=== PATIENT | male | born 2000 | race Two or more races ===

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

== ENCOUNTER 2022-03-19 11:32 | Emergency (ER) | payer MEDICAID, SELFPAY ==
--- NOTE | ~2022-03-19 | XR_ITS ---
EXAMINATION: XR CHEST CLINICAL INFORMATION: Palpitations COMPARISON: Chest radiographs 10/19/2019 TECHNIQUE: 2 views of the chest were obtained. FINDINGS: Lungs clear. Vascularity normal. No infiltrate or effusion. Heart size normal. No pneumothorax or pleural reaction. There is mild hyperinflation versus good inspiratory effort. The hilar and mediastinal contours and visualized bony structures are unremarkable. XR/XR chest 2V IMPRESSION: Unremarkable examination.
--- NOTE | 2022-03-19 11:34 | ECG_ITS ---
Test Reason : CHEST PAIN Blood Pressure : / mmHG Vent. Rate : 067 BPM Atrial Rate : 067 BPM P-R Int : 166 ms QRS Dur : 094 ms QT Int : 382 ms P-R-T Axes : 053 075 042 degrees QTc Int : 403 ms Normal sinus rhythm Normal ECG No previous ECGs available Referred By: Generic ED Physician Electronically Signed By:HUNG BOGGS
[2022-03-19 11:50] VITALS: BP 121/66; PULSE 62; RESP 16; TEMP 36.6; O2SAT 99; BMI 23.0
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
[2022-03-19 12:27] VITALS: BP 107/63; PULSE 65; RESP 15; TEMP 36.3; O2SAT 100
== END 2022-03-19 13:15 | disposition home or self-care (01) ==
PROVIDERS: Emergency Provider Student in an Organized Health Care Education/Training Program
DX: R07.89 Other chest pain (principal); R00.2 Palpitations; Z79.899 Other long term (current) drug therapy
CPT/HCPCS: 71046; 93005; 99283; 99284

== ENCOUNTER 2022-04-29 11:33 | Emergency (ER) | payer MEDICAID, SELFPAY ==
[2022-04-29 11:34] VITALS: BP 121/67; PULSE 66; RESP 18; TEMP 36.3; O2SAT 100; BMI 22.8
--- NOTE | 2022-04-29 11:43 | ED.GENADULT ---
HPI - General Adult General Chief complaint: Abdominal Pain Stated complaint: ?food poisoning Time Seen by Provider: 04/29/22 11:42 Source: patient Mode of arrival: ambulatory Limitations: no limitations History of Present Illness HPI narrative: Patient is a 22 year old assigned male at with no reported medical history presenting to the emergency department today with nausea and vomiting. Patient states that he had bad chicken from his school cafeteria and has been nauseous / throwing up ever since. Patient denies any dizziness, lightheadedness, abdominal pain, fever, chills, blurry vision, double vision, loss of vision, chest pain, difficulty breathing, shortness of breath, back pain, night sweats, pain with urination, increased urinary frequency, increased urinary urgency, blood in his urine or stool, syncope or a near syncopal episode, recent trauma or falls, bowel incontinence, bladder incontinence, bowel retention, bladder retention, or any other complaints at this time. Onset (ago): hour(s) Radiation: non-radiation Severity: mild Severity scale (1-10): 3 Relieving factors: none Exacerbating factors: none Associated symptoms: nausea/vomiting Treatments prior to arrival: none Related Data Previous Rx's Medication Instructions Recorded cephalexin 500 mg capsule 500 mg PO BID 10 days #20 caps 09/28/20 doxycycline monohydrate 100 mg 100 mg PO BID 10 days #20 caps 09/28/20 capsule erythromycin 5 mg/gram (0.5 %) eye 0.5 inch ophthalmic (eye) QID 09/28/20 ointment Bacterial conjunctivitis 7 days #3.5 grams ibuprofen 600 mg tablet 600 mg PO Q6H PRN pain #20 tabs 11/04/20 ondansetron 4 mg disintegrating 4 mg PO Q8H 3 days #9 tabs 04/29/22 tablet Allergies Allergy/AdvReac Type Severity Reaction Status Date / Time No Known Allergies Allergy Unverified 12/21/19 18:48 Review of Systems Constitutional: Constitutional: Reports no additional constitutional complaints, Denies chills, Denies fever(s) and Denies night sweats Eyes: Eyes: Reports no additional eye complaints, Denies blurry vision, Denies change in vision, Denies diplopia, Denies eye discharge, Denies loss of vision and Denies eye pain ENT: Denies dizziness Cardiovascular: Cardiovascular: Reports no additional cardiovascular complaints, Denies chest pain, Denies lightheadedness, Denies Loss of Consciousness and Denies dyspnea Respiratory: Respiratory: Reports no additional respiratory complaints and Denies dyspnea Gastrointestinal: Gastrointestinal: Reports no additional gastrointestinal complaints, Denies abdominal pain, Denies melena, Denies hematochezia, Denies change in bowel habits, Denies change in stool character, Reports nausea and Reports vomiting Genitourinary: Genitourinary: Reports no additional male genitourinary complaints, Denies hematuria, Denies oliguria, Denies difficulty urinating, Denies dysuria, Denies urinary frequency, Denies urinary hesitancy, Denies urinary incontinence and Denies urinary urgency Musculoskeletal: Musculoskeletal: Reports no additional musculoskeletal complaints, Denies numbness and Denies tingling Neurologic: Denies dizziness, Denies loss of vision, Denies numbness and Denies tingling Psychiatric: Psychiatric: Reports no additional psychiatric complaints Endocrine: Endocrine: Reports no additional endocrine complaints Hematologic/Lymphatic: Hematologic/Lymphatic: Reports no additional hematologic/lymphatic complaints Allergic/Immunologic: Allergic/Immunologic: Reports no additional allergic/immunologic complaints PMFSH Past Medical History Attestation statement: The following information was validated with the patient. Source: old records reviewed and nursing notes reviewed Medical History No active medical problems Social History Social History Advance Directives: No Physical Exam ED Vital Signs: Vital Signs - 24 hr 04/29/22 11:34 04/29/22 11:51 Temperature 97.3 F 97.8 F Pulse Rate 66 56 Respiratory Rate 18 20 Blood Pressure 121/67 125/84 Pulse Oximetry 100 100 Oxygen Delivery Method Room Air Room Air BMI result Body Mass Index 22.8 Const General: cooperative, no acute distress, alert and awake Nutritional Appearance: well nourished Orientation/consciousness: patient oriented x3 Limitations: no limitations HENMT Head: Yes normal to inspection and Yes atraumatic Ears: hearing grossly normal bilaterally and external ears normal General nose exam: Normal external nose present, no nasal discharge noted and no epistaxis Face and sinus: Yes normal facial exam, No abrasion and No laceration Mouth: Normal oral and palatal mucosa present, no drooling and no muffled voice Eyes General: appearance normal, both eyes and all related structures Periorbital: periorbital findings normal Eyelids: Yes eyelids normal Conjunctivae: conjunctivae normal Pupils: Equal, round and reactive pupils present EOM: EOMs intact bilaterally Neck Neck: Yes normal visual inspection, Yes full ROM and Yes no lymphadenopathy Chest Chest palpation & inspection: normal inspection of the chest Resp Effort & Inspection: normal respiratory effort and able to speak in complete sentences Auscultation: clear to auscultation bilaterally Cardio Rate: regular rate Rhythm: regular rhythm GI Inspection: Yes normal to inspection Palpation (GI): Soft to palpation, not firm, nontender, no guarding and not rigid Neuro General: patient oriented x3 and moves all extremities Cranial nerves: Yes Equal, round and reactive pupils present Cognition (Neuro): normal cognition Motor exam (neuro): 5/5 motor strength present throughout Sensory Exam: Normal double simultaneous stimulation for sensation Coordination: erdauz-ew-[id number] test normal Extrem General: Yes normal to inspection, Yes full ROM and Yes capillary refill normal Psych Appearance: grossly normal Mental Status: mental status grossly normal Affect: normal affect Attitude: cooperative Thought process: Normal thought process present Thought content: Normal thought content present Insight: Good insight present (Psych) Medications Administered Discontinued Medications Generic Name Dose Route Start Last Admin Trade Name Freq PRN Reason Stop Dose Admin Sodium Chloride 1,000 mls @ 999 mls/hr 04/29/22 11:45 04/29/22 12:08 Ns IV 04/29/22 12:45 999 mls/hr .Q1H1M KASHIF Administration Ondansetron HCl 4 mg 04/29/22 11:44 04/29/22 12:10 Ondansetron Hcl 4 Mg/2 Ml Vial IVPUSH 04/29/22 11:45 4 mg ONCE ONE Administration Medical Decision Making Medical Decision Making [facility] Narrative: Patient is a 22 year old assigned male at with no reported medical history presenting to the emergency department today with nausea and vomiting. Patient's physical exam was unremarkable. Patient's blood work was unremarkable. I explained my physical exam findings as well as all test results to the patient. I answered all questions asked by the patient. Patient received IV fluids and Zofran which he stated helped his symptoms significantly. I stressed the importance of the patient taking his medication as prescribed. I stressed the importance of the patient following up with his primary care provider. I stressed the importance of the patient returning to the emergency department immediately if his symptoms were to worsen or if he were to develop any dizziness, shortness of breath, difficulty breathing, chest pain, blurry vision, loss of vision, nausea, vomiting, abdominal pain, fever, chills, back pain, or any other complaints. Patient verbalized agreement and understanding with this treatment plan and discharge. Differential Diagnosis Differential Diagnoses: The differential diagnosis associated with the presentation includes nausea, vomiting Lab Data MDM Lab Attestation statement: I reviewed the patient's lab results. 04/29/22 12:05 04/29/22 12:05 Labs: Lab Results 04/29/22 04/29/22 04/29/22 Range/Units 12:04 12:04 12:05 WBC 10.2 (4.8-10.8) X10*3/uL RBC 5.26 (4.60-5.80) X10*6/uL Hgb 15.8 (14.0-18.0) g/dl Hct 46.4 (42.0-52.0) % MCV 88.2 (80.0-98.0) fL MCH 30.0 (27.0-33.0) pg MCHC 34.1 (31.0-36.0) g/dl RDW 13.0 (11.0-16.0) % Plt Count 210 (160-400) X10*3/uL MPV 9.9 (9.4-12.4) fL Immature Gran % (Auto) 0.3 (0.0-0.4) % Neut % (Auto) 76.9 H (45-73) % Lymph % (Auto) 15.1 L (20-40) % Toombs % (Auto) 5.5 (2-11) % Eos % (Auto) 1.9 (0-4) % Baso % (Auto) 0.3 (0-2) % Lymph # (Auto) 1.5 (1.2-4.9) X10*3/uL Toombs # (Auto) 0.6 (0.1-1.2) X10*3/uL Eos # (Auto) 0.2 (0.0-0.4) X10*3/uL Baso # (Auto) 0.0 (0.0-0.2) X10*3/uL Abs Immat Gran (auto) 0.03 (0.00-0.03) X10*3/uL Absolute Neuts (auto) 7.8 (2.0-8.3) x10*3/uL Absolute Nucleated RBC 0.000 (0.0-0.012) X10*3/uL Nucleated RBC % (auto) 0.0 (0.0-0.2) /100WBC Sodium (135-145) mmol/L Potassium (3.3-5.1) mmol/L Chloride (96-108) mmol/L Carbon Dioxide (22-29) mmol/L Anion Gap (12-20) BUN (9-16) mg/dL Creatinine (0.5-1.4) mg/dL Estim Creat Clear Calc Estimated GFR Random Glucose (60-115) mg/dL Calcium (8.4-10.2) mg/dL Magnesium (1.6-2.6) mg/dL Total Bilirubin (0.0-1.0) mg/dL AST (5-37) U/L ALT (0-40) U/L Alkaline Phosphatase (39-117) U/L Total Protein (6.5-8.0) g/dL Albumin (3.5-5.0) g/dL COVID-19 ([facility]) Negative (Negative) COVID-19 Clin Com See Note Influenza Type A ([facility]) Negative (Negative) Influenza Type B ([facility]) Negative (Negative) Influenza A & B Note See Note 04/29/22 Range/Units 12:05 WBC (4.8-10.8) X10*3/uL RBC (4.60-5.80) X10*6/uL Hgb (14.0-18.0) g/dl Hct (42.0-52.0) % MCV (80.0-98.0) fL MCH (27.0-33.0) pg MCHC (31.0-36.0) g/dl RDW (11.0-16.0) % Plt Count (160-400) X10*3/uL MPV (9.4-12.4) fL Immature Gran % (Auto) (0.0-0.4) % Neut % (Auto) (45-73) % Lymph % (Auto) (20-40) % Toombs % (Auto) (2-11) % Eos % (Auto) (0-4) % Baso % (Auto) (0-2) % Lymph # (Auto) (1.2-4.9) X10*3/uL Toombs # (Auto) (0.1-1.2) X10*3/uL Eos # (Auto) (0.0-0.4) X10*3/uL Baso # (Auto) (0.0-0.2) X10*3/uL Abs Immat Gran (auto) (0.00-0.03) X10*3/uL Absolute Neuts (auto) (2.0-8.3) x10*3/uL Absolute Nucleated RBC (0.0-0.012) X10*3/uL Nucleated RBC % (auto) (0.0-0.2) /100WBC Sodium 140 (135-145) mmol/L Potassium 4.2 (3.3-5.1) mmol/L Chloride 103 (96-108) mmol/L Carbon Dioxide 27 (22-29) mmol/L Anion Gap 14 (12-20) BUN 10 (9-16) mg/dL Creatinine 1.03 (0.5-1.4) mg/dL Estim Creat Clear Calc 106.9 Estimated GFR > 60 Random Glucose 87 (60-115) mg/dL Calcium 9.9 (8.4-10.2) mg/dL Magnesium 2.1 (1.6-2.6) mg/dL Total Bilirubin 1.5 H (0.0-1.0) mg/dL AST 18 (5-37) U/L ALT 12 (0-40) U/L Alkaline Phosphatase 97 (39-117) U/L Total Protein 6.8 (6.5-8.0) g/dL Albumin 4.3 (3.5-5.0) g/dL COVID-19 ([facility]) (Negative) COVID-19 Clin Com Influenza Type A ([facility]) (Negative) Influenza Type B ([facility]ITT) (Negative) Influenza A & B Note Discharge Plan Discharge Clinical Impression: Nausea & vomiting Patient Disposition: Home, Self-Care Instructions: Acute Nausea and Vomiting (ED) Additional Instructions: Follow up with your primary care provider. Return to the emergency department immediately if your symptoms worsen or if you develop any dizziness, shortness of breath, difficulty breathing, chest pain, blurry vision, loss of vision, nausea, vomiting, abdominal pain, fever, chills, back pain, or any other complaints. Prescriptions: New ondansetron 4 mg tablet,disintegrating 4 mg PO Q8H 3 Days Qty: 9 0RF No Action ibuprofen 600 mg tablet 600 mg PO Q6H PRN (Reason: pain) Qty: 20 0RF doxycycline monohydrate 100 mg capsule 100 mg PO BID 10 Days Qty: 20 0RF cephalexin 500 mg capsule 500 mg PO BID 10 Days Qty: 20 0RF erythromycin 5 mg/gram (0.5 %) ointment 0.5 inch ophthalmic (eye) QID 7 Days Qty: 3.5 0RF Referrals: [facility] [place] Family Medicine [Provider Group] (Call to establish and follow up with a primary care provider. If you already have a primary care provider, please follow up with them. ) [facility] [place] Primary CareLeonila [Provider Group] (Call to establish and follow up with a primary care provider. If you already have a primary care provider, please follow up with them. ) [facility] [place] Primary Care,Reji [Provider Group] (Call to establish and follow up with a primary care provider. If you already have a primary care provider, please follow up with them. ) Stand Alone Forms: Work/School Release Interventions: ED Discharge Assessment Last Done: 04/29/22 12:51 Print Language: Mauritian
[2022-04-29 11:51] VITALS: BP 125/84; PULSE 56; RESP 20; TEMP 36.6; O2SAT 100
[2022-04-29] MEDS: 0.9 % Sodium Chloride 1,000 ML 999 ML IV (12:08)
[2022-04-29 12:09] LABS: MANUAL DIFF FLAG NO
[2022-04-29] MEDS: ondansetron HCL 4 MG/2 ML VIAL IVPUSH (12:10)
[2022-04-29 12:13] LABS: Basophils Percent Auto 0.3 % (0-2); Eosinophils Absolute Auto 0.2 X10*3/uL (0.0-0.4); Eosinophils Percent Auto 1.9 % (0-4); Hematocrit 46.4 % (42.0-52.0); Hemoglobin 15.8 g/dl (14.0-18.0); Imm Gran Abs Auto 0.03 X10*3/uL (0.00-0.03); Imm Gran Pct Auto 0.3 % (0.0-0.4); Lymphocytes Absolute Auto 1.5 X10*3/uL (1.2-4.9); Lymphocytes Percent Auto 15.1 % (20-40); Mean Corpuscular HGB Conc 34.1 g/dl (31.0-36.0); Mean Corpuscular Volume 88.2 fL (80.0-98.0); Mean Platelet Volume 9.9 fL (9.4-12.4); Monocytes Absolute Auto 0.6 X10*3/uL (0.1-1.2); Monocytes Percent Auto 5.5 % (2-11); Neutrophils Absolute Auto 7.8 x10*3/uL (2.0-8.3); Neutrophils Percent Auto 76.9 % (45-73); Platelet Count 210 X10*3/uL (160-400); Red Blood Count 5.26 X10*6/uL (4.60-5.80); White Blood Count 10.2 X10*3/uL (4.8-10.8)
[2022-04-29 12:24] LABS: COVID-19 Test Negative (Negative); IDNOW Serial# BCCEAD1C
[2022-04-29 12:30] LABS: IDNOW Serial# 9DB6401D; Influenza A Negative (Negative); Influenza B2 Negative (Negative)
[2022-04-29 12:31] LABS: Alanine Aminotransferase 12 U/L (0-40); Albumin Level 4.3 g/dL (3.5-5.0); Alkaline Phosphatase 97 U/L (39-117); Anion Gap 14 (12-20); Aspartate Amino Transferase 18 U/L (5-37); Bilirubin Total 1.5 mg/dL (0.0-1.0); Blood Urea Nitrogen 10 mg/dL (9-16); Calcium 9.9 mg/dL (8.4-10.2); Carbon Dioxide 27 mmol/L (22-29); Chloride 103 mmol/L (96-108); Creatinine Clr Calc Pharmacy 106.9; Estimated Glomerular Filt Rate > 60; Glucose Random 87 mg/dL (60-115); Magnesium 2.1 mg/dL (1.6-2.6); Potassium 4.2 mmol/L (3.3-5.1); Sodium 140 mmol/L (135-145); Total Protein 6.8 g/dL (6.5-8.0)
== END 2022-04-29 12:52 | disposition home or self-care (01) ==
PROVIDERS: Physician Assistant Medical; Emergency Provider Emergency Medicine
DX: R11.2 Nausea with vomiting, unspecified (principal); Z20.822 Contact with and (suspected) exposure to COVID-19
CPT/HCPCS: 36415; 80053; 83735; 85025; 87502; 87635; 96374; 99283; 99284; J2405

== ENCOUNTER 2022-07-16 11:05 | Emergency (ER) | payer MEDICAID, SELFPAY ==
--- NOTE | 2022-07-16 11:17 | ED.GENADULT ---
HPI - General Adult General Chief complaint: General Medical <Leslie Lovell NP - Last Filed: 07/16/22 11:19> Stated complaint: medical clearance <Leslie Lovell NP - Last Filed: 07/16/22 11:19> Time Seen by Provider: 07/16/22 11:31 <Leslie Lovell NP - Last Filed: 07/16/22 11:19> Source: patient <GLYNN Mcgarry - Last Filed: 07/16/22 13:11> Mode of arrival: ambulatory <GLYNN Mcgarry - Last Filed: 07/16/22 13:11> Limitations: no limitations <GLYNN Mcgarry Last Filed: 07/16/22 13:11> History of Present Illness HPI narrative: 22 yo male presents to the ER for evaluation of colf/flu symptoms for the last 3 days. He presents with his girlfriend who has had similar symptoms for the last 5 days and is now feeling better. Patient reports cough, nasal congestion, diarrhea and low back pains. He also has a mild sore throat yesterday but not today. He denies any fever or chills. He is eating and drinking normally. No abdominal pains. No difficulty breathing or shortness of breath. <GLYNN Mcgarry - Last Filed: 07/16/22 13:11> MD complaint: cough, congestion, myalgias <GLYNN Mcgarry - Last Filed: 07/16/22 13:11> Onset (ago): day(s) (3) <GLYNN Mcgarry - Last Filed: 07/16/22 13:11> Location: mouth, neck and back <GLYNN Mcgarry Last Filed: 07/16/22 13:11> Radiation: non-radiation <GLYNN Mcgarry Last Filed: 07/16/22 13:11> Severity: mild <GLYNN Mcgarry Last Filed: 07/16/22 13:11> Quality: aching <GLYNN Mcgarry Last Filed: 07/16/22 13:11> Pain Consistency: constant <GLYNN Mcgarry Last Filed: 07/16/22 13:11> Relieving factors: none <GLYNN Mcgarry - Last Filed: 07/16/22 13:11> Exacerbating factors: none <GLYNN Mcgarry - Last Filed: 07/16/22 13:11> Associated symptoms: cough <GLYNN Mcgarry - Last Filed: 07/16/22 13:11> Treatments prior to arrival: none <GLYNN Mcgarry - Last Filed: 07/16/22 13:11> Related Data Home medications: Previous Rx's Medication Instructions Recorded cephalexin 500 mg capsule 500 mg PO BID 10 days #20 caps 09/28/20 doxycycline monohydrate 100 mg 100 mg PO BID 10 days #20 caps 09/28/20 capsule erythromycin 5 mg/gram (0.5 %) eye 0.5 inch ophthalmic (eye) QID 09/28/20 ointment Bacterial conjunctivitis 7 days #3.5 grams ibuprofen 600 mg tablet 600 mg PO Q6H PRN pain #20 tabs 11/04/20 ondansetron 4 mg disintegrating 4 mg PO Q8H 3 days #9 tabs 04/29/22 tablet <Leslie Lovell NP - Last Filed: 07/16/22 11:19> Allergies/adverse reactions: Allergies Allergy/AdvReac Type Severity Reaction Status Date / Time No Known Allergies Allergy Unverified 12/21/19 18:48 <Leslie Lovell NP - Last Filed: 07/16/22 11:19> Review of Systems Review of Systems: Yes all other systems are reviewed and are negative <GLYNN Mcgarry - Last Filed: 07/16/22 13:11> [facility] Past Medical History Medical History: Medical History No active medical problems <Leslie Lovell NP - Last Filed: 07/16/22 11:19> Social History Social History: Social History Advance Directives: No Advance Directives Information Provided: No <Leslie Lovell NP - Last Filed: 07/16/22 11:19> Physical Exam ED Vital Signs: Vital Signs - 24 hr 07/16/22 11:18 Temperature 98 F Pulse Rate 82 Respiratory Rate 19 Blood Pressure 115/72 Pulse Oximetry 98 Oxygen Delivery Method Room Air BMI result Body Mass Index 22.6 <Lesile Lovell NP - Last Filed: 07/16/22 11:19> Vital Signs - 24 hr 07/16/22 11:18 Temperature 98 F Pulse Rate 82 Respiratory Rate 19 Blood Pressure 115/72 Pulse Oximetry 98 Oxygen Delivery Method Room Air BMI result Body Mass Index 22.6 <GLYNN Mcgarry - Last Filed: 07/16/22 13:11> Appearance: Alert. Oriented X3. No acute distress. Head: normocephalic, atraumatic. Eyes: Pupils equal, round and reactive to light. ENT: Pharynx normal. No tonsillar swelling or exudate. Neck: Normal inspection. Neck supple. CVS: Normal heart rate and rhythm. Pulses normal. Respiratory: No respiratory distress. Breath sounds normal. Abdomen: Soft and nontender. +BS x4 Skin: Skin warm and dry. Normal skin color. Normal skin turgor. No rashes. Extremities: No lower extremity edema. No joint swelling. Neuro/psych: Oriented X 3. No motor deficit. No sensory deficit. CN II-XII intact. Normal speech and cognition. <GLYNN Mcgarry - Last Filed: 07/16/22 13:11> Course Course Course Narrative: This is rapid medical exam. Deferred additional HPI, ROS, PE to primary provider. 22 yo male with no known medical problems here with complaints cough, nasal congestion, headache, back pain, fever, diarrhea since Wednesday. Girlfriend here sick with similar symptoms. Will send covid screen. VSS. <Leslie Lovell NP - Last Filed: 07/16/22 11:19> Medical Decision Making Medical Decision Making MDM Narrative: 22 yo male presenting with URI symptoms w/ cough <GLYNN Mcgarry - Last Filed: 07/16/22 13:11> Differential Diagnosis Differential Diagnoses: The differential diagnosis associated with the presentation includes <GLYNN Mcgarry Last Filed: 07/16/22 13:11> strep, covid, flu, rsv, other viral syndrome, bronchitis, pneumonia, no evidence of peritonsillar abcsess or retropharyngeal abscess <GLYNN Mcgarry - Last Filed: 07/16/22 13:11> Lab Data MDM Lab Attestation statement: I reviewed the patient's lab results. <GLYNN Mcgarry - Last Filed: 07/16/22 13:11> Labs: Lab Results 07/16/22 07/16/22 Range/Units 11:21 11:45 COVID-19 ([facility]) Negative (Negative) COVID-19 Clin Com See Note S. pyogenes GrpA [facility]ITT Negative (Negative) <Leslie Lovell NP - Last Filed: 07/16/22 11:19> Lab Results 07/16/22 07/16/22 Range/Units 11:21 11:45 COVID-19 ([facility]) Negative (Negative) COVID-19 Clin Com See Note S. pyogenes GrpA BRITT Negative (Negative) <GLYNN Mcgarry - Last Filed: 07/16/22 13:11> Discharge Plan Discharge Clinical Impression: Viral URI with cough <Leslie Lovell NP - Last Filed: 07/16/22 11:19> Patient Disposition: Home, Self-Care <Leslie Lovell NP - Last Filed: 07/16/22 11:19> Instructions: Viral Syndrome (ED) <Leslie Lovell NP - Last Filed: 07/16/22 11:19> Additional Instructions: You tested negative for COVID-19 and strep throat today. Your symptoms are most likely due to another viral illness. Treatment is rest and supportive care. Take [id number] cold and flu medications as needed for your symptoms. Rest and drink plenty of fluids. You should be okay to go back to work this weekend. Take Motrin and Tylenol as needed for back pain. Follow-up with your doctor as needed. If you develop new or worsening symptoms call 911 or come back to the ER for further evaluation. <Leslie Lovell NP - Last Filed: 07/16/22 11:19> Prescriptions: No Action ibuprofen 600 mg tablet 600 mg PO Q6H PRN (Reason: pain) Qty: 20 0RF doxycycline monohydrate 100 mg capsule 100 mg PO BID 10 Days Qty: 20 0RF cephalexin 500 mg capsule 500 mg PO BID 10 Days Qty: 20 0RF erythromycin 5 mg/gram (0.5 %) ointment 0.5 inch ophthalmic (eye) QID 7 Days Qty: 3.5 0RF ondansetron 4 mg tablet,disintegrating 4 mg PO Q8H 3 Days Qty: 9 0RF <Leslie Lovell NP - Last Filed: 07/16/22 11:19> Stand Alone Forms: Work/School Release <Leslie Lovell NP - Last Filed: 07/16/22 11:19> Interventions: ED Discharge Assessment Last Done: 07/16/22 12:48 <Leslie Lovell NP - Last Filed: 07/16/22 11:19> Discharge Date/Time: 07/16/22 12:48 <Leslie Lovell NP - Last Filed: 07/16/22 11:19>
[2022-07-16 11:18] VITALS: BP 115/72; PULSE 82; RESP 19; TEMP 36.6; O2SAT 98; BMI 22.6
--- NOTE | 2022-07-16 11:49 | PC.NURSE ---
strep swab obtained pending results
[2022-07-16 11:52] LABS: COVID-19 Test Negative (Negative); IDNOW Serial# 08D9AD1C
[2022-07-16 12:26] LABS: IDNOW Serial# 08D9AD1C; Strep A Nucleic Acid Negative (Negative)
== END 2022-07-16 12:48 | disposition home or self-care (01) ==
PROVIDERS: Nurse Practitioner Family; Physician Assistant; Emergency Provider Emergency Medicine
DX: J06.9 Acute upper respiratory infection, unspecified (principal); R05.9 Cough, unspecified; Z20.822 Contact with and (suspected) exposure to COVID-19; Z20.828 Contact with and (suspected) exposure to other viral communicable diseases; Z79.899 Other long term (current) drug therapy
CPT/HCPCS: 87635; 87651; 99282; 99283

== ENCOUNTER 2022-09-09 06:34 | Emergency (ER) | payer MEDICAID, SELFPAY ==
--- NOTE | 2022-09-09 | ECG_ITS ---
Test Reason : CHEST PAIN Blood Pressure : / mmHG Vent. Rate : 077 BPM Atrial Rate : 077 BPM P-R Int : 164 ms QRS Dur : 096 ms QT Int : 376 ms P-R-T Axes : 050 062 021 degrees QTc Int : 425 ms Normal sinus rhythm with sinus arrhythmia Normal ECG When compared with ECG of 19-MAR-2022 11:44, No significant change was found Referred By: Generic ED Physician Electronically Signed By:Marc Low
--- NOTE | ~2022-09-09 | XR_ITS ---
EXAMINATION: XR CHEST CLINICAL INFORMATION: Chest pain COMPARISON: 03/19/2022 TECHNIQUE: 2 views of the chest were obtained. FINDINGS: No significant abnormality is noted involving the heart, lungs, mediastinum, bony thorax or soft tissues. XR/XR chest 2V IMPRESSION: Unremarkable examination.
[2022-09-09 06:35] VITALS: BP 138/82; PULSE 84; RESP 18; TEMP 36.8; O2SAT 100; BMI 23.2
[2022-09-09 06:55] LABS: Hematocrit 44.2 % (42.0-52.0); Hemoglobin 15.3 g/dl (14.0-18.0); Mean Corpuscular HGB Conc 34.6 g/dl (31.0-36.0); Mean Corpuscular Hemoglobin 30.1 pg (27.0-33.0); Mean Corpuscular Volume 86.8 fL (80.0-98.0); Mean Platelet Volume 9.8 fL (9.4-12.4); Platelet Count 236 X10*3/uL (160-400); Red Blood Count 5.09 X10*6/uL (4.60-5.80); Red Cell Distribution Width 12.4 % (11.0-16.0); White Blood Count 7.9 X10*3/uL (4.8-10.8)
[2022-09-09 07:12] LABS: Alanine Aminotransferase 16 U/L (0-40); Albumin Level 4.7 g/dL (3.5-5.0); Alkaline Phosphatase 107 U/L (39-117); Anion Gap 14 (12-20); Aspartate Amino Transferase 26 U/L (5-37); Bilirubin Total 1.4 mg/dL (0.0-1.0); Blood Urea Nitrogen 11 mg/dL (9-16); Carbon Dioxide 25 mmol/L (22-29); Chloride 105 mmol/L (96-108); Creatinine Clr Calc Pharmacy 122.4; Estimated Glomerular Filt Rate > 60; Glucose Random 91 mg/dL (60-115); Lipase 12 U/L (8-78); Potassium 3.7 mmol/L (3.3-5.1); Sodium 140 mmol/L (135-145); Total Protein 7.4 g/dL (6.5-8.0)
[2022-09-09 07:21] LABS: Troponin-I High Sensitivity 12.7 ng/L (<3.5-35.0)
[2022-09-09 09:06] LABS: Color Urine Yellow; Glucose Urine UA Negative (Negative); Leukocyte Esterase Urine Negative (Negative); Nitrite Urine Negative (Negative); Urine Blood Negative (Negative); Urine Ketones Trace mg/dL (Negative); Urine Protein Negative (Neg-Trace)
--- NOTE | 2022-09-09 09:07 | ED_ITS ---
HPI - General Adult General Chief complaint: General Medical Stated complaint: Abdominal Pain/ Chest pain Time Seen by Provider: 09/09/22 09:06 Source: patient Mode of arrival: ambulatory Limitations: no limitations History of Present Illness HPI narrative: Patient is a 22 year old assigned male at with no reported medical history presenting to the emergency department today with epigastric pain. Patient stat es that after hitting his tobacco vape, he had an episode of abdominal pain that radiated into his chest and has now resolved. Patient denies any dizziness, lightheadedness, nausea, vomiting, fever, chills, blurry vision, double vision, loss of vision, chest pain, difficulty breathing, shortness of breath, back pain, night sweats, pain with urination, increased urinary frequency, increased urinary urgency, blood in his urine or stool, syncope or a near syncopal episode, recent trauma or falls, bowel incontinence, bladder incontinence, bowel retention, bladder retention, or any other complaints at this time. Onset (ago): hour(s) Location: chest and abdomen Severity: mild Severity scale (1-10): 3 Pain Consistency: now resolved Relieving factors: none Exacerbating factors: none Associated symptoms: denies other symptoms Treatments prior to arrival: none Related Data Previous Rx's Medication Instructions Recorded cephalexin 500 mg capsule 500 mg PO BID 10 days #20 caps 09/28/20 doxycycline monohydrate 100 mg 100 mg PO BID 10 days #20 caps 09/28/20 capsule erythromycin 5 mg/gram (0.5 %) eye 0.5 inch ophthalmic (eye) QID 09/28/20 ointment Bacterial conjunctivitis 7 days #3.5 grams ibuprofen 600 mg tablet 600 mg PO Q6H PRN pain #20 tabs 11/04/20 ondansetron 4 mg disintegrating 4 mg PO Q8H 3 days #9 tabs 04/29/22 tablet Allergies Allergy/AdvReac Type Severity Reaction Status Date / Time No Known Allergies Allergy Verified 09/09/22 06:40 Review of Systems Constitutional: Constitutional: Reports no additional constitutional complaints, Denies chills, Denies fever(s) and Denies night sweats Eyes: Eyes: Reports no additional eye complaints, Denies blurry vision, Denies change in vision, Denies diplopia, Denies eye discharge, Denies loss of vision and Denies eye pain ENT: Denies dizziness Cardiovascular: Cardiovascular: Reports no additional cardiovascular complaints, Reports chest pain (now resolved), Denies lightheadedness, Denies Loss of Consciousness and Denies dyspnea Respiratory: Respiratory: Reports no additional respiratory complaints and D enies dyspnea Gastrointestinal: Gastrointestinal: Reports no additional gastrointestinal complaints, Reports abdominal pain (epigastric - now resolved), Denies melena, Denies hematochezia, Denies change in bowel habits and Denies change in stool character Genitourinary: Genitourinary: Reports no additional male genitourinary complaints, Denies hematuria, Denies oliguria, Denies difficulty urinating, Denies dysuria, Denies urinary frequency, Denies urinary hesitancy, Denies urinary incontinence and Denies urinary urgency Musculoskeletal: Musculoskeletal: Reports no additional musculoskeletal complaints, Denies numbness and Denies tingling Neurologic: Denies dizziness, Denies loss of vision, Denies numbness and Denies tingling Psychiatric: Psychiatric: Reports no additional psychiatric complaints Endocrine: Endocrine: Reports no additional endocrine complaints Hematologic/Lymphatic: Hematologic/Lymphatic: Reports no additional hematol ogic/lymphatic complaints Allergic/Immunologic: Allergic/Immunologic: Reports no additional allergic/immunologic complaints PMFSH Past Medical History Attestation statement: The following information was validated with the patient. Source: old records reviewed and nursing notes reviewed Medical History No active medical problems Social History Social History Advance Directives: No Physical Exam ED Vital Signs: Vital Signs - 24 hr 09/09/22 06:35 Temperature 98.3 F Pulse Rate 84 Respiratory Rate 18 Blood Pressure 138/82 Pulse Oximetry 100 Oxygen Delivery Method Room Air BMI result Body Mass Index 23.2 Const General: cooperative, no acute distress, alert and awake Nutritional Appearance: well nourished Orientation/consciousness: patient oriented x3 Limitations: no limitations HENMT Head: Yes normal to inspection and Yes atraumatic Ears: hearing grossly normal bilaterally and external ears normal General nose exam: Normal external nose present, no nasal discharge noted and no epistaxis Face and sinus: Yes normal facial exam, No abrasion and No laceration Mouth: Normal oral and palatal mucosa present, no drooling and no muffled voice Eyes General: appearance normal, both eyes and all related structures Periorbital: periorbital findings normal Eyelids: Yes eyelids normal Conjunctivae: conjunctivae normal Pupils: Equal, round and reactive pupils present EOM: EOMs intact bilaterally Neck Neck: Yes normal visual inspection, Yes full ROM and Yes no lymphadenopathy Chest Chest palpation & inspection: normal inspection of the chest Resp Effort & Inspection: normal respiratory effort and able to speak in complete sentences Auscultation: clear to auscultation bilaterally Cardio Rate: regular rate Rhythm: regular rhythm GI Inspection: Yes normal to inspection Palpation (GI): Soft to palpation, not firm, nontender, no guarding and not rigid Neuro General: patient oriented x3 and moves all extremities Cranial nerves: Yes Equal, round and reactive pupils present Cognition (Neuro): normal cognition Motor exam (neuro): 5/5 motor strength present throughout Sensory Exam: Normal double simultaneous stimulation for sensation Coordination: [id number] test normal Extrem General: Yes normal to inspection, Yes full ROM and Yes capillary refill normal Psych Appearance: grossly normal Mental Status: mental status grossly normal Affect: normal affect Attitude: cooperative Thought process: Normal thought process present Thought content: Normal thought content present Insight: Good insight present (Psych) Medical Decision Making Medical Decision Making MDM Narrative: Patient is a 22 year old assigned male at with no reported medical history presenting to the emergency department today with epigastric and chest pain that has resolved. Patient's physical exam was unremarkable. Patient's blood work was unremarkable. Patient's initial and repeat EKGs were unremarkable. Patient's chest x-ray showed no acute process. I explained my physical exam findings as well as all test results to the patient. I answered all questions asked by the patient. I stressed the importance of the patient taking his medication as prescribed. I stressed the importance of the patient following up with his primary care provider. I stressed the importance of the patient returning to the emergency department immediately if his symptoms were to worsen or if he were to develop any dizziness, shortness of breath, difficulty breathing, chest pain, blurry vision, loss of vision, nausea, vomiting, abdominal pain, fever, chills, back pain, or any other complaints. Patient verbalized agreement and understanding with this treatment plan and discharge. Differential Diagnosis Differential Diagnoses: The differential diagnosis associated with the presentation includes chest wall pain, epigastric pain, anxiety Admission/Observation Consideration of admission/observation: Escalation of care including admission/observation considered Patient would have been admitted to the hospital had his work up had any findings where hospital admission was appropriate. Lab Data MDM Lab Attestation statement: I reviewed the patient's lab results. My interpretation of these studies and their corresponding values is that they are grossly normal. 09/09/22 06:48 09/09/22 06:48 Labs: Lab Results 09/09/22 09/09/22 09/09/22 Range/Units 06:48 06:48 06:48 WBC 7.9 (4.8-10.8) X10*3/uL RBC 5.09 (4.60-5.80) X10*6/uL Hgb 15.3 (14.0-18.0) g/dl Hct 44.2 (42.0-52.0) % MCV 86.8 (80.0-98.0) fL MCH 30.1 (27.0-33.0) pg MCHC 34.6 (31.0-36.0) g/dl RDW 12.4 (11.0-16.0) % Plt Count 236 (160-400) X10*3/uL MPV 9.8 (9.4-12.4) fL Absolute Nucleated RBC 0.000 (0.0-0.012) X10*3/uL Nucleated RBC % (auto) 0.0 (0.0-0.2) /100WBC Sodium 140 (135-145) mmol/L Potassium 3.7 (3.3-5.1) mmol/L Chloride 105 (96-108) mmol/L Carbon Dioxide 25 (22-29) mmol/L Anion Gap 14 (12-20) BUN 11 (9-16) mg/dL Creatinine 0.90 (0.5-1.4) mg/dL Estim Creat Clear Calc 122.4 Estimated GFR > 60 Random Glucose 91 (60-115) mg/dL Calcium 10.0 (8.4-10.2) mg/dL Total Bilirubin 1.4 H (0.0-1.0) mg/dL AST 26 (5-37) U/L ALT 16 (0-40) U/L Alkaline Phosphatase 107 (39-117) U/L Troponin I High Sens 12.7 (<3.5-35.0) ng/L Total Protein 7.4 (6.5-8.0) g/dL Albumin 4.7 (3.5-5.0) g/dL Lipase 12 (8-78) U/L Urine Color Urine Appearance Urine pH (5.0-9.0) Ur Specific [place] (1.005-1.025) Urine Protein (Neg-Trace) mg/dL Urine Glucose (UA) (Negative) mg/dL Urine Ketones (Negative) mg/dL Urine Blood (Negative) Urine Nitrite (Negative) Ur Leukocyte Esterase (Negative) 09/09/22 09/09/22 Range/Units 08:52 09:18 WBC (4.8-10.8) X10*3/uL RBC (4.60-5.80) X10*6/uL Hgb (14.0-18.0) g/dl Hct (42.0-52.0) % MCV (80.0-98.0) fL MCH (27.0-33.0) pg MCHC (31.0-36.0) g/dl RDW (11.0-16.0) % Plt Count (160-400) X10*3/uL MPV (9.4-12.4) fL Absolute Nucleated RBC (0.0-0.012) X10*3/uL Nucleated RBC % (auto) (0.0-0.2) /100WBC Sodium (135-145) mmol/L Potassium (3.3-5.1) mmol/L Chloride (96-108) mmol/L Carbon Dioxide (22-29) mmol/L Anion Gap (12-20) BUN (9-16) mg/dL Creatinine (0.5-1.4) mg/dL Estim Creat Clear Calc Estimated GFR Random Glucose (60-115) mg/dL Calcium (8.4-10.2) mg/dL Total Bilirubin (0.0-1.0) mg/dL AST (5-37) U/L ALT (0-40) U/L Alkaline Phosphatase (39-117) U/L Troponin I High Sens 11.9 (<3.5-35.0) ng/L Total Protein (6.5-8.0) g/dL Albumin (3.5-5.0) g/dL Lipase (8-78) U/L Urine Color Yellow Urine Appearance Clear Urine pH 6.0 (5.0-9.0) Ur Specific [place] 1.020 (1.005-1.025) Urine Protein Negative (Neg-Trace) mg/dL Urine Glucose (UA) Negative (Negative) mg/dL Urine Ketones Trace (Negative) mg/dL Urine Blood Negative (Negative) Urine Nitrite Negative (Negative) Ur Leukocyte Esterase Negative (Negative) Independent Interpretation I performed an independent interpretation of an: EKG Interpretation: Vent. Rate: 077 BPM ? ? Atrial Rate: 077 BPM P-R Int: 164 ms? QRS Dur: 096 ms QT Int: 376 ms ? ? ? P-R-T Axes: 050 062 021 degrees QTc Int: 425 ms ? Normal sinus rhythm with sinus arrhythmia Normal ECG When compared with ECG of 19-MAR-2022 11:44, No significant change was found DD/ Vent. Rate: 075 BPM ? ? Atrial Rate: 075 BPM P-R Int: 160 ms? QRS Dur: 100 ms QT Int: 402 ms ? ? ? P-R-T Axes: 057 067 027 degrees QTc Int: 448 ms ? Normal sinus rhythm Normal ECG When compared with ECG of 09-SEP-2022 06:40, No significant change was found DD/ 5 My interpretation is in agreement with the radiologist's impression of this imaging study. EXAMINATION: XR CHEST CLINICAL INFORMATION: Chest pain COMPARISON: 03/19/2022 TECHNIQUE: 2 views of the chest were obtained. FINDINGS: No significant abnormality is noted involving the heart, lungs, mediastinum, bony thorax or soft tissues. XR/XR chest 2V IMPRESSION: Unremarkable examination. Dictated By: Joshua Moss MD Signed By: Electronically signed by Joshua Moss MD 09/09/22 1029 Scores Heart Score History: -0- slightly suspicious Age: -0- < or = 45 Risk factory: -0- no risk factors known Troponin: -0- < or = normal limit Discharge Plan Discharge Clinical Impression: Epigastric pain Patient Disposition: Home, Self-Care Instructions: Epigastric Pain (ED) Additional Instructions: Follow up with your primary care provider. Return to the emergency department immediately if your symptoms worsen or if you develop any dizziness, shortness of breath, difficulty breathing, chest pain, blurry vision, loss of vision, nausea, vomiting, abdominal pain, fever, chills, back pain, or any other complaints. Prescriptions: No Action ibuprofen 600 mg tablet 600 mg PO Q6H PRN (Reason: pain) Qty: 20 0RF doxycycline monohydrate 100 mg capsule 100 mg PO BID 10 Days Qty: 20 0RF cephalexin 500 mg capsule 500 mg PO BID 10 Days Qty: 20 0RF erythromycin 5 mg/gram (0.5 %) ointment 0.5 inch ophthalmic (eye) QID 7 Days Qty: 3.5 0RF ondansetron 4 mg tablet,disintegrating 4 mg PO Q8H 3 Days Qty: 9 0RF Referrals: [facility] [place] Family Medicine [Provider Group] (Call to establish and follow up with a primary care provider. If you already have a primary care provider, please follow up with them.) [facility] [place] Primary CareLeonila [Provider Group] (Call to establish and follow up with a primary care provider. If you already have a primary care provider, please follow up with them.) [facility] [place] Primary CareRe[facility] [Provider Group] (Call to establish and follow up with a primary care provider. If you already have a primary care provider, please follow up with them.) Stand Alone Forms: Work/School Release Interventions: ED Discharge Assessment Last Done: 09/09/22 10:02 Discharge Date/Time: 09/09/22 10:03 Print Language: Korean
[2022-09-09 09:08] LABS: Appearance Urine Clear
--- NOTE | 2022-09-09 09:08 | ECG_ITS ---
Test Reason : chest pain Blood Pressure : / mmHG Vent. Rate : 075 BPM Atrial Rate : 075 BPM P-R Int : 160 ms QRS Dur : 100 ms QT Int : 402 ms P-R-T Axes : 057 067 027 degrees QTc Int : 448 ms Normal sinus rhythm Normal ECG When compared with ECG of 09-SEP-2022 06:40, No significant change was found Referred By: Emi Herrera Electronically Signed By:Marc Low
[2022-09-09 09:44] LABS: Troponin-I High Sensitivity 11.9 ng/L (<3.5-35.0)
== END 2022-09-09 10:03 | disposition home or self-care (01) ==
PROVIDERS: Physician Assistant Medical; Emergency Provider Internal Medicine
DX: R10.13 Epigastric pain (principal); R07.9 Chest pain, unspecified
CPT/HCPCS: 36415; 71046; 80053; 81003; 83690; 84484; 85027; 93005; 99283